=== PATIENT | male | born 1995 | race Caucasian/White ===

== ENCOUNTER 2016-09-14 10:10 | Emergency (ER) | payer OTHER ==
[2016-09-14 11:03] VITALS: BP 132/91; PULSE 77; RESP 16; TEMP 97.5; O2SAT 95
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
== END 2016-09-14 11:47 | disposition home or self-care (01) ==
LOC: CED 10:10
DX: S20.212A Contusion of left front wall of thorax, initial encounter (principal); S93.402A Sprain of unspecified ligament of left ankle, initial encounter; V86.99XA Unspecified occupant of other special all-terrain or other off-road motor vehicle injured in nontraffic accident, initial encounter
CPT/HCPCS: 73610-PO; G0463-PO